=== PATIENT | female | born 1955 | race Caucasian/White ===

== ENCOUNTER 2017-01-16 07:35 | Day surgery (SDC) | payer OTHER ==
[2017-01-10 10:51] VITALS: BMI 30.7
[2017-01-16] MEDS ORDERED: PROPOFOL 20 ML ONE ×2 (07:38)
[2017-01-16 09:06] VITALS: TEMP 97.8
[2017-01-16 10:19] VITALS: BP 117/70; PULSE 78
== END 2017-01-16 10:15 | disposition home or self-care (01) ==
LOC: FASU-ENDO 07:35
PROVIDERS: ATTEND Internal Medicine Gastroenterology
PROC: 0DJD8ZZ Inspection of Lower Intestinal Tract, Via Natural or Artificial Opening Endoscopic (ICD-10-PCS; principal; 2017-01-16 08:39)
DX: Z12.11 Encounter for screening for malignant neoplasm of colon (principal); Z80.0 Family history of malignant neoplasm of digestive organs

== ENCOUNTER 2020-03-18 04:35 | Day surgery (SDC) | payer BC ==
[2019-10-22 11:15] VITALS: BMI 29.1
--- NOTE | 2020-03-18 08:09 | HP ---
Admitting History and Physical - Admission Chief Complaint: Low Back Pain History of Present Illness: The patient has low back pain due to spondylosis s/p RFA over 7 months ago with good releif. - Smoking History Smoking history: Former smoker Have you smoked in the past 12 months: No If you are a former smoker, when did you quit?: 1986 - Alcohol/Substance Use Hx Alcohol Use: Yes (SOCIAL) Home Medications - Allergies Allergies/Adverse Reactions: Allergies Allergy/AdvReac Type Severity Reaction Status Date / Time No Known Allergies Allergy Verified 03/18/20 07:19 - Home Medications Home Medications: Ambulatory Orders Levothyroxine Sodium [Synthroid] 88 mcg PO DAILY 01/10/17 Albuterol Sulfate Inhaler - [Ventolin Hfa Inhaler -] 1 puff IH PRN PRN 10/22/19 Tizanidine HCl 4 mg PO HS 10/22/19 Aspirin Coated [Ecotrin -] 325 mg PO DAILY 03/17/20 Lisinopril [Prinivil] 20 mg PO DAILY 03/17/20 Review of Systems - Review of Systems Constitutional: reports: No Symptoms Eyes: reports: No Symptoms HENT: reports: No Symptoms Neck: reports: No Symptoms Cardiovascular: reports: No Symptoms Respiratory: reports: No Symptoms Gastrointestinal: reports: No Symptoms Genitourinary: reports: No Symptoms Breasts: reports: No Symptoms Reported Musculoskeletal: reports: Back Pain Neurological: reports: No Symptoms Endocrine: reports: No Symptoms Hematology/Lymphatic: reports: No Symptoms Psychiatric: reports: No Symptoms Physical Examination Vital Signs: Vital Signs Temperature 96.5 F L 03/18/20 07:17 Pulse Rate 71 03/18/20 07:17 Respiratory Rate 20 03/18/20 07:17 Blood Pressure 103/59 L 03/18/20 07:17 O2 Sat by Pulse Oximetry (%) 99 03/18/20 07:17 Constitutional: Yes: Well Nourished, No Distress Eyes: Yes: Conjunctiva Clear, EOM Intact HENT: Yes: Atraumatic, Normocephalic Neck: Yes: Trachea Midline Cardiovascular: Yes: Regular Rate and Rhythm Respiratory: Yes: Regular Musculoskeletal: Yes: Back Pain Extremities: Yes: WNL Imaging - Results MRI: Image Reviewed Assessment/Plan The patients pain is secondary to lumbar spondylosis s/p RFA in the past with good releif. Painhas returned. I will perform Right/Left L3 L4 L5 RFA.
[2020-03-18] MEDS ORDERED: DEXAMETHASONE SOD PHOSPHATE/PF 10 MG/ML SDV ONE (08:42)
[2020-03-18] MEDS ORDERED: BUPIVACAINE HCL/PF 0.75% 10 ML VIAL ONE (08:43)
[2020-03-18] MEDS ORDERED: LIDOCAINE HCL/PF 1% SDV 5ML VIAL ONE ×2 (08:43)
[2020-03-18] MEDS ORDERED: LIDOCAINE 1% P/F 10 MG/ML VIAL INF ONE (09:21)
[2020-03-18] MEDS ORDERED: BUPIVACAINE HCL/PF 0.75% 10 ML VIAL NR ONE (09:22)
[2020-03-18] MEDS ORDERED: DEXAMETHASONE SOD PHOSPHATE 10 MG/1 ML VIAL IVPUSH ONE (09:23)
[2020-03-18 10:45] VITALS: BP 144/76; PULSE 64; TEMP 97.1
--- NOTE | 2020-03-23 13:45 | PROC ---
Procedure Note Procedure: [facility] Service 03/18/20 Preprocedure Diagnosis: Lumbar spondylosis Post Procedure Diagnosis: same Anesthesia: Local Procedure Performed: Left L3 L4 L5 Lumbar Medial Branch Radiofrequency ablation The patient was sterilely prepped and draped in the usual fashion while in the prone position. 1% Lidocaine was used to provide soft tissue anesthesia. Time out was performed. Under fluoroscopic guidance, 10mm active tip radiofrequency probes were successfully directed over the LEFT L3, L4 and L5 dorsal rami at the intersection of the transverse processes and superior articular processes. Needle tip positions were confirmed with both sensory and motor stimulation, both of which resulted in appropriate responses in the lumbar region, and no reponse in the lower extremities. Lesions were performed at each site at a temperature of 90 degrees Celsius for duration of 90 seconds. Prior to each lesion, 1mL of a cocktail of 4mL of 2% lidocaine and 1mL Omnipaque 180 was injected at each site. Following each lesion, 0.5mL of solution containing 1mL dexamethasone and 2mL of .75% bupivacaine, was injected at each site. The patient tolerated the procedure well and there were no complications. The patient was taken to the post procedure recovery area in good condition. Vital signs remained stable before, during, and after the procedure. The patient was given oral and written follow-up instructions. The patient was given a follow up appointment with me in the near future. Hardeep AMEZQUITA
== END 2020-03-18 10:47 | disposition home or self-care (01) ==
LOC: JASU-SURG 04:35
PROVIDERS: ATTEND Pain Medicine Pain Medicine
PROC: BR16YZZ Fluoroscopy of Lumbar Facet Joint(s) using Other Contrast (ICD-10-PCS; 2020-03-18)
PROC: 3E0T3TZ Introduction of Destructive Agent into Peripheral Nerves and Plexi, Percutaneous Approach (ICD-10-PCS; principal; 2020-03-18 08:30)
DX: M47.896 Other spondylosis, lumbar region (principal); I10 Essential (primary) hypertension; E03.9 Hypothyroidism, unspecified; M54.5 Low back pain; Z87.891 Personal history of nicotine dependence
CPT/HCPCS: 76000-TC-FY; J1100

== ENCOUNTER 2020-04-22 04:22 | Day surgery (SDC) | payer BC ==
[2020-04-22] MEDS ORDERED: LIDOCAINE HCL 1% PRESERVATIVE FREE - 30ML VIAL IJ ONE (15:06)
[2020-04-22] MEDS ORDERED: IOHEXOL 180 MG/1 ML ML IJ ONE (15:07)
[2020-04-22] MEDS ORDERED: BUPIVACAINE HCL/PF 0.75% 10 ML VIAL NR ONE (15:07)
[2020-04-22] MEDS ORDERED: DEXAMETHASONE SOD PHOSPHATE 10 MG/1 ML VIAL IVPUSH ONE (15:07)
[2020-04-22] MEDS ORDERED: LIDOCAINE HCL/PF 2% SDV 5ML VIAL INF ONE (15:08)
[2020-04-22 15:58] VITALS: BP 118/61; PULSE 67; TEMP 97.8
[2020-04-22] MEDS ORDERED: DEXAMETHASONE SOD PHOSPHATE/PF 10 MG/ML SDV ONE (16:32)
[2020-04-22] MEDS ORDERED: LIDOCAINE HCL/PF 2% SDV 5ML VIAL ONE (16:51)
[2020-04-22] MEDS ORDERED: LIDOCAINE HCL/PF 1% SDV 5ML VIAL ONE (16:52)
--- NOTE | 2020-04-27 11:51 | PROC ---
Procedure Note Procedure: Pre procedure Diagnosis: Lumbar Spondylosis Post Procedure Diagnosis: same Anesthesia: local Procedure Performed: Right L3 L4 L5 medial branch radiofrequency Ablation The patient was sterilely prepped and draped in the usual fashion while in the prone position. 1% Lidocaine was used to provide soft tissue anesthesia. Time out was performed. Under fluoroscopic guidance, 10mm active tip radiofrequency probes were successfully directed over the RIGHT L3, L4 and L5 dorsal rami at the intersection of the transverse processes and superior articular processes. Needle tip positions were confirmed with both sensory and motor stimulation, both of which resulted in appropriate responses in the lumbar region, and no reponse in the lower extremities. Lesions were performed at each site at a temperature of 90 degrees Celsius for duration of 90 seconds. Prior to each lesion, 1mL of a cocktail of 4mL of 2% li docaine and 1mL Omnipaque 180 was injected at each site. Following each lesion, 0.5mL of solution containing 1mL dexamethasone and 2mL of .75% bupivacaine, was injected at each site. The patient tolerated the procedure well and there were no complications. The patient was taken to the post procedure recovery area in good condition. Vital signs remained stable before, during, and after the procedure. The patient was given oral and written follow-up instructions. The patient was given a follow up appointment with me in the near future. Hardeep AMEZQUITA
== END 2020-04-22 16:32 | disposition home or self-care (01) ==
LOC: JASU-SURG 04:22
PROVIDERS: ATTEND Pain Medicine Pain Medicine
PROC: BR16YZZ Fluoroscopy of Lumbar Facet Joint(s) using Other Contrast (ICD-10-PCS; 2020-04-22)
PROC: 3E0T3TZ Introduction of Destructive Agent into Peripheral Nerves and Plexi, Percutaneous Approach (ICD-10-PCS; principal; 2020-04-22 11:30)
DX: M47.896 Other spondylosis, lumbar region (principal)
CPT/HCPCS: 76000-TC-FY; J1100

== ENCOUNTER 2021-09-15 04:12 | Day surgery (SDC) | payer BC, OTHER ==
[2021-09-14 12:25] VITALS: BMI 28.6
[~2021-09-15 04:12] MED LIST: LIDOCAINE HCL 1% PRESERVATIVE FREE - 30ML VIAL IJ ONE; LIDOCAINE HCL/PF 2% SDV 5ML VIAL INF ONE
[2021-09-15] MEDS ORDERED: LIDOCAINE HCL/PF 1% SDV 5ML VIAL ONE (07:20)
[2021-09-15] MEDS ORDERED: BUPIVACAINE HCL/PF 0.75% 10 ML VIAL ONE (07:20)
[2021-09-15] MEDS ORDERED: LIDOCAINE HCL/PF 2% SDV 5ML VIAL ONE (07:23)
[2021-09-15] MEDS ORDERED: DEXAMETHASONE SOD PHOSPHATE 10 MG/1 ML VIAL ONE (13:28)
[2021-09-15] MEDS ORDERED: LIDOCAINE HCL 1% PRESERVATIVE FREE - 30ML VIAL IJ ONE (13:34)
[2021-09-15] MEDS ORDERED: LIDOCAINE HCL/PF 2% SDV 5ML VIAL INF ONE ×2 (13:34→13:38)
[2021-09-15] MEDS ORDERED: IOHEXOL 180 MG/1 ML ML IJ ONE (13:38)
[2021-09-15] MEDS ORDERED: BUPIVACAINE HCL/PF 0.75% 10 ML VIAL NR ONE ×2 (13:39→13:40)
[2021-09-15] MEDS ORDERED: DEXAMETHASONE SOD PHOSPHATE 10 MG/1 ML VIAL IVPUSH ONE (13:40)
[2021-09-15 16:22] VITALS: BP 110/65; PULSE 79; TEMP 98
== END 2021-09-15 14:35 | disposition home or self-care (01) ==
LOC: JASU-SURG 04:12
PROVIDERS: ATTEND Pain Medicine Pain Medicine
PROC: 3E0T3TZ Introduction of Destructive Agent into Peripheral Nerves and Plexi, Percutaneous Approach (ICD-10-PCS; principal; 2021-09-15 13:00)
DX: M47.816 Spondylosis without myelopathy or radiculopathy, lumbar region (principal)
CPT/HCPCS: 76000-TC-FY; J1100

== ENCOUNTER 2022-06-19 04:30 | Day surgery (SDC) | payer OTHER ==
[2022-06-15 14:17] VITALS: BMI 29.1
[2022-06-19] MEDS ORDERED: LIDOCAINE HCL/PF 2% SDV 5ML VIAL ONE (08:09)
[2022-06-19 09:42] VITALS: RESP 16
[2022-06-19] MEDS ORDERED: LIDOCAINE HCL 1% PRESERVATIVE FREE - 30ML VIAL IJ ONE (13:00)
[2022-06-19 13:57] VITALS: BP 104/62; PULSE 63; TEMP 97.2
== END 2022-06-19 14:15 | disposition home or self-care (01) ==
LOC: JASU-SURG 04:30
PROVIDERS: ATTEND Pain Medicine Pain Medicine
PROC: 01HY3MZ Insertion of Neurostimulator Lead into Peripheral Nerve, Percutaneous Approach (ICD-10-PCS; principal; 2022-06-19 10:30)
DX: G89.4 Chronic pain syndrome (principal); M54.9 Dorsalgia, unspecified
CPT/HCPCS: 64555; C1778; 76000-TC-FY; 82962

== ENCOUNTER 2022-07-31 04:36 | Day surgery (SDC) | payer OTHER ==
[2022-07-27 17:48] VITALS: BMI 29.1
[2022-07-31] MEDS ORDERED: LIDOCAINE HCL/PF 2% SDV 5ML VIAL ONE (07:28)
[2022-07-31] MEDS ORDERED: LIDOCAINE HCL/PF 1% SDV 5ML VIAL ONE (07:28)
[2022-07-31 09:56] VITALS: BP 109/52; PULSE 72; RESP 16; TEMP 98.5
== END 2022-07-31 11:00 | disposition home or self-care (01) ==
LOC: JASU-SURG 04:36
PROVIDERS: ATTEND Pain Medicine Pain Medicine
DX: Z53.8 Procedure and treatment not carried out for other reasons (principal)
CPT/HCPCS: 82962

== ENCOUNTER 2022-09-04 04:26 | Day surgery (SDC) | payer OTHER ==
[2022-08-31 16:28] VITALS: BMI 29.1
[~2022-09-04 04:26] MED LIST changes: -LIDOCAINE HCL/PF 2% SDV 5ML VIAL INF ONE
[2022-09-04] MEDS ORDERED: LIDOCAINE HCL/PF 1% SDV 5ML VIAL ONE (07:17)
[2022-09-04 08:36] VITALS: RESP 18
[2022-09-04] MEDS ORDERED: LIDOCAINE HCL 1% PRESERVATIVE FREE - 30ML VIAL IJ ONE ×2 (09:58)
[2022-09-04 10:53] VITALS: BP 120/70; PULSE 67; TEMP 97.5
== END 2022-09-04 11:50 | disposition home or self-care (01) ==
LOC: JASU-SURG 04:26
PROVIDERS: ATTEND Pain Medicine Pain Medicine
PROC: 01HY3MZ Insertion of Neurostimulator Lead into Peripheral Nerve, Percutaneous Approach (ICD-10-PCS; principal; 2022-09-04 09:00)
DX: G89.4 Chronic pain syndrome (principal); M54.50 Low back pain, unspecified
CPT/HCPCS: 64555; C1778; 76000-TC-FY; C9803-CS; U0003; U0005

== ENCOUNTER 2022-12-14 04:05 | Day surgery (SDC) | payer OTHER ==
[2022-12-12 12:37] VITALS: BMI 29.1
[~2022-12-14 04:05] MED LIST changes: +ACETAMINOPHEN 500 MG TABLET (FP) PO PRN; +BUPIVACAINE HCL/PF 0.5% (5MG/ML) 10 ML VIAL IJ ONE; +IOHEXOL 180 MG/1 ML ML IJ ONE; +TRIAMCINOLONE ACET 40MG/1ML VIAL IM ONE
[2022-12-14] MEDS ORDERED: BUPIVACAINE HCL/PF 0.5% (5MG/ML) 10 ML VIAL ONE (07:24)
[2022-12-14] MEDS ORDERED: LIDOCAINE HCL/PF 1% SDV 5ML VIAL ONE (07:24)
[2022-12-14] MEDS ORDERED: TRIAMCINOLONE ACET 40MG/1ML VIAL ONE (07:24)
[2022-12-14] MEDS ORDERED: ACETAMINOPHEN 500 MG TABLET (FP) PO PRN (11:55)
[2022-12-14 13:29] VITALS: RESP 20; TEMP 98
[2022-12-14] MEDS ORDERED: LIDOCAINE HCL 1% PRESERVATIVE FREE - 30ML VIAL IJ ONE (14:26)
[2022-12-14] MEDS ORDERED: BUPIVACAINE HCL/PF 0.5% (5MG/ML) 10 ML VIAL IJ ONE (14:26)
[2022-12-14] MEDS ORDERED: IOHEXOL 180 MG/1 ML ML IJ ONE (14:30)
[2022-12-14] MEDS ORDERED: TRIAMCINOLONE ACET 40MG/1ML VIAL IM ONE (14:30)
[2022-12-14 15:07] VITALS: BP 105/43; PULSE 78
== END 2022-12-14 15:31 | disposition home or self-care (01) ==
LOC: JASU-SURG 04:05
PROVIDERS: ATTEND Pain Medicine Pain Medicine
PROC: 3E0U3BZ Introduction of Anesthetic Agent into Joints, Percutaneous Approach (ICD-10-PCS; 2022-12-14)
PROC: 3E0U33Z Introduction of Anti-inflammatory into Joints, Percutaneous Approach (ICD-10-PCS; principal; 2022-12-14 14:30)
DX: M53.3 Sacrococcygeal disorders, not elsewhere classified (principal)
CPT/HCPCS: 76000-TC-FY